=== PATIENT | male | born 1930 | race Caucasian/White ===

== ENCOUNTER → 2017-02-05 | Outpatient (CLI) | payer OTHER ==
--- NOTE | 2017-02-05 13:03 | DI ---
CT HEAD SCAN WITHOUT IV CONTRAST, 02/05/2017 12:32 PM : Clinical History: Memory loss. Previous Exam: 09/05/2016. Scans are obtained from the foramen magnum to the vertex without IV contrast. The fourth ventricle is of normal size, shape, position and contour. The third and lateral ventricles are moderately dilated but are otherwise normal. There is no evidence of an acute hemorrhagic or [place] infarct. There are multiple punctate periventricular white matter lucencies bilaterally that exten d into the watershed territory, consistent with small vessel ischemic disease. This amount of ischemi c disease is appropriate for the patient's age. There is moderate cerebellar, cerebral, and there is also mild brainstem atrophy. This diffuse distribution of atrophic change is frequently associated wi th either chronic alcohol or Dilantin usage. There are no extracerebral mantles or shift of the midli ne structures. Bone window evaluation is normal. The paranasal sinuses are normal. READIN. There is no acute hemorrhagic or bland infarct. 2. Small vessel ischemic disease. 3. Diffuse atrophy involving the brainstem, cerebellum, and cerebrum. This diffuse atrophic change c an be seen with chronic alcohol or Dilantin usage.
== END ==
LOC: CT 12:28
PROVIDERS: ATTEND Obstetrics & Gynecology Gynecology
DX: R41.3 Other amnesia (principal); R51 Headache; I73.89 Other specified peripheral vascular diseases; G31.89 Other specified degenerative diseases of nervous system
CPT/HCPCS: 70450